=== PATIENT | male | born 1955 | race Caucasian/White ===

== ENCOUNTER → 2021-07-27 | Outpatient (CLI) | payer MEDICARE ==
[~2021-07-27] MED LIST: BACTRIM DS TAB1 EACH PO; KEFLEX CAP 500500 MG PO; LODINE CAP 300300 MG PO; NORCO 5-325 TA1 EACH PO; NORCO 7.5-3251 EACH PO; ZOFRAN ODT 4 MG4 MG SL
== END ==
LOC: KOH-I 09:40
DX: M54.50 Low back pain, unspecified (principal); M51.36 Other intervertebral disc degeneration, lumbar region; M48.061 Spinal stenosis, lumbar region without neurogenic claudication; N20.0 Calculus of kidney
CPT/HCPCS: 72100